=== PATIENT | male | born 1985 | race Caucasian/White ===

== ENCOUNTER 2016-12-21 13:02 | Emergency (ER) | payer MEDICAID ==
[2016-12-21 13:18] VITALS: BMI 34.4
--- NOTE | 2016-12-21 13:49 | DIRPT ---
CLINICAL DATA: Shortness of breath for 4-5 days, has been taking nebulizer without success, history asthma, cough with green sputum production, initial encounter EXAM: CHEST 2 VIEW COMPARISON: 03/25/2016 FINDINGS: Normal heart size, mediastinal contours, and pulmonary vascularity. Minimal chronic bronchitic changes. No acute infiltrate, pleural effusion or pneumothorax. Bones unremarkable. IMPRESSION: Minimal chronic bronchitic changes without infiltrate. Electronically Signed By: Seth Bueno M.D. On: 12/21/2016 13:46
[2016-12-21 14:51] VITALS: TEMP 98.5
[2016-12-21] MEDS ORDERED: ALBUTEROL 6.7 GM MDI INH ONE (14:56)
[2016-12-21] MEDS ORDERED: METHYLPREDNISOLONE 125 MG/2 ML VIAL IM ONE (14:56)
[2016-12-21] MEDS ORDERED: Albuterol/Ipratropium Neb 3 ML NEB NEB ONE (14:56)
--- NOTE | 2016-12-21 14:57 | EDPRACDOC ---
- General Information Chief Complaint: Adult Asthma Stated Complaint: SHOB/ HX ASTHMA/ USED NEB X6 Time Seen by Provider: 12/21/16 14:48 Information Source: Patient Mode Of Arrival: Car Home Medications: Home Medications Albuterol Sulfate [Accuneb] 1.25 mg NEB Q4-6H PRN 11/15/12 Acetaminophen with Codeine [TYLENOL WITH CODEINE; [employer] with Codeine] 5 ml PO Q6H PRN #120 ml 03/25/16 Albuterol Sulfate [Proair Hfa] 2 puff INH Q4-6H PRN #1 inhaler 03/25/16 Budesonide [Pulmicort] 1 mg INH BID 03/25/16 Ipratropium [place] 0.2 mg IH Q4-6H 03/25/16 Prednisone [Deltasone, Orasone] 20 mg PO DAILY #20 tab 03/25/16 Azithromycin [Zithromax] 0 mg PO DAILY #6 tablet 12/21/16 Prednisone [Sterapred Ds] 10 mg PO DIR #21 pack 12/21/16 Allergies/Adverse Reactions: Allergies Allergy/AdvReac Type Severity Reaction Status Date / Time No Known Allergies Allergy Verified 12/21/16 13:18 - History of Present Illness Onset: THIS AM HPI: INCREASED ASTHMA SYMPTOMS SINCE THIS AM. STATES HAS HAD MULTIPLE NEBS TODAY WITHOUT NORMAL RELIEF. PT ALSO STATES DOES NOT HAVE RESCUE INH. Shortness of Breath: Mild Relevant History: Reports: Asthma Cough: Reports: Non-productive Rhinorrhea: Reports: None Ear Symptoms: Reports: None SOB Worsens with: Reports: Exertion, Coughing SOB Improves with: Reports: Nothing Associated Signs and symptoms: Reports: Other (SOB WHEEZING) ED Past Medical History - History Reviewed Yes Nurses notes reviewed and agree except as marked Travel Outside of [place] in the Last 3 Months?: No - Patient Medical History Respiratory History: Reports: Asthma - Social Medical History Smoking Status: Former smoker ETOH: None Substance Abuse: None Lives With: Other Lives In: Home EDM Review of Systems - Review of Systems ROS Negative Except as Marked: Yes All systems reviewed and were negative except as marked Constitutional: No Symptoms Reported. negative: Fever, Chills, Weakness, Fatigue, Loss of Appetite Eyes: No Symptoms Reported. negative: Redness, Blurred Vision, Double Vision, Discharge, Pain, Light Sensitive, Photophobia Ears: No Symptoms Reported. negative: Pain, Hearing Loss, Drainage, Ear Pulling Throat: No Symptoms Reported. negative: Pain, Swelling Nose: No Symptoms Reported. negative: Congestion, Bleeding, Discharge, Injection, Swelling, Deformity, Ecchymosis, Tender, Abrasion, Laceration Mouth: No Symptoms Reported. negative: Pain, Drooling Respiratory: Cough, Shortness of Breath, Wheezing. negative: Barky Cough, Brassy Cough, Hemoptysis Cardiovascular: No Symptoms Reported. negative: Chest Pain, Palpitations, Syncope, Edema, Orthopnea, PND, Skin Mottling, Cyanosis Gastrointestinal: No Symptoms Reported. negative: Pain, Constipation, Nausea, Vomiting, Diarrhea, Melena, Formula Intolerance Genitourinary: No Symptoms Reported. negative: Dysuria, Hematuria, Frequency, Discharge, Bleeding, Testicular Pain, Neurological: No Symptoms Reported. negative: Headache, Dizziness, Seizure, Numbness, Weakness, Speech Difficulty, Gait Difficulty Musculoskeletal: No Symptoms Reported. negative: Neck, Chestwall, Ribs, Back, Shoulder, Arm, Elbow, Forearm, Wrist, Hand, Pelvis, Hip, Femur, Knee, Leg, Ankle , Foot Integumentary: No Symptoms Reported. negative: Itching, Rash, Bruising, Wound Allergic/Immunologic: No Symptoms Reported. negative: Hives, Itching Hematologic: No Symptoms Reported. negative: Lymphadenopathy, Easy Bruising, Easy Bleeding Endocrine: No Symptoms Reported. negative: Weight Gain, Weight Loss Psychiatric: No Symptoms Reported. negative: Anxiety, Depression, Hallucinations, Insomnia, Suicidal - Physical Exam Constitutional: No apparent distress, Alert (Awake) Oriented to: Time, Person, Place Last recorded Vital Signs: Last Vital Signs Temp 98.5 F 12/21/16 14:50 Pulse 79 12/21/16 14:50 Resp 20 12/21/16 14:50 BP 170/72 12/21/16 14:50 Pulse Ox 92 12/21/16 14:50 Oxygen Pulse Oxygen Saturation 92 O2 Device Room Air Oxygen Flow Rate Fraction of Inspired Oxygen ( FIO2) - HEENT Head: Normal ( normocephalic) Eye Exam: Normal (PERRL, EOMI, Sclera white) Oropharynx: Normal (Pharynx:Moist without exudate,Gums-no swelling) Tympanic Membrane: Normal ENT EAC: Normal TMJ: Normal Nose: No Symptoms Reported (septum midline) Neck: Normal (FROM, trachea at midline) - Respiratory/Cardiovascular Respiratory: Wheezes (FAINT BIALTERAL), Other Cardiovascular: Normal (RRR without murmur, gallop or rub) - GI Auscultation: Normal (NABS) Palpation: Normal (Soft,No rebound or guarding, non distended) Tenderness: Non tender Allen's Sign: Negative - Musculoskeletal Back: Normal (Non-Tender) Extremities: Normal (Normal tone, Pulses 2+ No cyanosis or edema, FROM) - Integumentary Skin: Normal, Warm, Dry Lymphatics: Normal (no adenopathy) - Neurologic Memory Impaired: Normal Motor Function: Normal (Normal tone, Pulses 2+ No cyanosis or edema, FROM) Cranial Nerve: Normal (CN II-X11 intact sensation, strength 5/5) Cerebellar: Normal Mood Description: Normal Perception: Normal ED SOB MDM - Differential Diagnosis Differential Diagnosis: Asthma, Pnuemonia - Re-evaluation Re-evaluation 1 Re-evaluation Time: 16:14 (PT STATES FEELING BETTER.) - Diagnostic Imaging CXR Image interpreted by: Radiologist Diagnostic Imaging Comments: IMPRESSION: Minimal chronic bronchitic changes without infiltrate. Decision Time to Discharge: 16:15 - Departure Disposition: Home Condition: Stable Final Diagnosis: Asthma exacerbation Instructions: Asthma (ED) Education/Counseling Given To: Patient Education/Counseling Given Regarding: Diagnosis, Treatment, Prognosis, Follow Up Referrals: Tre Torres MD [Primary Care Provider] - One Week Prescriptions: Azithromycin [Zithromax] 0 mg PO DAILY #6 tablet Prednisone [Sterapred Ds] 10 mg PO DIR #21 pack
[2016-12-21 16:38] VITALS: BP 148/76; PULSE 84
== END 2016-12-21 16:26 | disposition home or self-care (01) ==
LOC: EDMC 13:02
DX: J45.901 Unspecified asthma with (acute) exacerbation (principal)
CPT/HCPCS: 71020; 94640; 94664; 96372; 99283; J2930; J3490; J7620